=== PATIENT | male | born 1985 ===

== ENCOUNTER 2025-03-16 09:11 | Outpatient (REF) | payer BC, SELFPAY ==
[2025-03-16 14:30] LABS: ALT 25 U/L (16-63); AST 28 U/L (15-37); Albumin 3.8 g/dL (3.4-5.0); Alkaline Phosphatase 90 U/L (46-116); Anion Gap 5.6 mmol/L (3-11); BUN 16 mg/dL (7-18); Bilirubin, Total 0.5 mg/dL (0.2-1.0); CO2 30.4 mmol/L (21.0-32.0); CREATININE 1.1 mg/dL (0.70-1.30); Calcium 9.3 mg/dL (8.5-10.1); Chloride 106 mmol/L (98-107); Estimated GFR 86.49 (mL/min/1.73m2); Glucose 91 mg/dL (74-106); Sodium 142 mmol/L (136-145); Total Protein 7.1 g/dL (6.4-8.2)
[2025-03-16 14:34] LABS: MCHC 31.6 % (32.0-36.0); MCV 82 fL (80-95); MPV 11.4 fL (8.0-11.0); Platelet Count 198 10^3/uL (130-400); RBC 4.61 10^6/uL (4.36-5.78); RDW 14.1 % (11.8-14.1); RDW-SD 41.9 fL; WBC 5.02 10^3/uL (4.4-10.8)
[2025-03-16 14:55] LABS: Calculated LDL 116 mg/dL (<100); Cholesterol 190 mg/dL (<200); HDL Cholesterol 63 mg/dL (>or=40); Triglyceride 55 mg/dL (<150)
[2025-03-16 15:02] LABS: Hemoglobin A1C 5.5 % (<5.7)
== END 2025-03-16 09:12 | disposition home or self-care (01) ==
LOC: NCHCN 09:11
PROVIDERS: PCP Registered Nurse; Visit Provider Physician Assistant
DX: Z13.220 Encounter for screening for lipoid disorders (principal); Z13.6 Encounter for screening for cardiovascular disorders; Z13.1 Encounter for screening for diabetes mellitus
CPT/HCPCS: 80053; 80061; 85027; 83036

== ENCOUNTER 2025-03-23 11:31 | Outpatient (REF) | payer BC, SELFPAY ==
[2025-03-23 15:11] LABS: Iron 31 ug/dL (65-175)
[2025-03-23 15:49] LABS: Ferritin 7 ng/mL (26-388)
== END 2025-03-23 11:32 | disposition home or self-care (01) ==
LOC: NCHCN 11:31
PROVIDERS: PCP Registered Nurse; Visit Provider Physician Assistant
DX: D64.9 Anemia, unspecified (principal)
CPT/HCPCS: 82728; 83540

== ENCOUNTER 2025-05-18 11:43 | Outpatient (REF) | payer BC, SELFPAY ==
[2025-05-18 15:28] LABS: HCT 44.2 % (40.0-50.0); HGB 14.5 g/dL (13.5-17.5); MCH 28.3 pg (27.0-33.0); MCHC 32.8 % (32.0-36.0); MCV 86 fL (80-95); MPV 10.5 fL (8.0-11.0); Platelet Count 182 10^3/uL (130-400); RBC 5.12 10^6/uL (4.36-5.78); RDW 16.3 % (11.8-14.1); RDW-SD 51.9 fL; WBC 5.33 10^3/uL (4.4-10.8)
[2025-05-18 15:40] LABS: Iron 102 ug/dL (65-175); Total Iron Binding Capacity 396 ug/dL (250-450); Transferrin Sat 26 % (20-55)
[2025-05-18 15:52] LABS: Ferritin 38 ng/mL (26-388)
== END 2025-05-18 11:44 | disposition home or self-care (01) ==
LOC: NCHCN 11:43
PROVIDERS: PCP Registered Nurse; Visit Provider Physician Assistant
DX: D64.9 Anemia, unspecified (principal)
CPT/HCPCS: 85027; 82728; 83540; 83550